=== PATIENT | female | born 1945 | race Caucasian/White ===

== ENCOUNTER 2017-04-23 10:32 | Emergency (ER) | payer OTHER ==
[~2017-04-23] VITALS: Ht 152.4 cm; Wt 51.2 kg
[2017-04-23 10:40] VITALS: Ht 152.4 cm; Wt 51.2 kg
[2017-04-23 11:51] VITALS: BP 135/66
== END 2017-04-23 11:51 | disposition home or self-care (01) ==
LOC: ED 10:32
DX: R05 Cough (principal); I10 Essential (primary) hypertension; E11.9 Type 2 diabetes mellitus without complications; Z90.49 Acquired absence of other specified parts of digestive tract; Z88.0 Allergy status to penicillin; Z88.1 Allergy status to other antibiotic agents
CPT/HCPCS: J1885